=== PATIENT | male | born 1975 ===

== ENCOUNTER 2021-05-03 21:41 | Inpatient (IN) ==
[2021-05-03 23:39] LABS: Eosinophils # 0.8 10*3/uL (0.0-0.87); Eosinophils % 20.3 % (0.00-10.9); Hematocrit 37.7 VOL% (42.0-52.0); Hemoglobin 13.8 GM/DL (14.0-18.0); Immature Granulocytes % 0.3 %; Immature Granulocytes Absolute 0.01 #; Lymphocytes % 23.8 % (21.2-54.2); Mean Corpuscular HGB Conc 36.6 GM/DL (32-36); Mean Corpuscular Volume 92.2 FL (87-102); Mean Platelet Volume 9.6 FL (9.6-12.0); Monocytes % 10.8 % (1.7-12.7); Neutrophils % 43.8 % (38.7-73.9); Platelet Count 129 T/CUMM (130-400); Red Blood Count 4.09 MC/CUMM (3.8-5.5); Red Cell Distribution Width 13.6 % (9.3-17.3)
[2021-05-03 23:58] LABS: Albumin 1.2 G/DL (3.4-5.0); Bilirubin,Total 0.8 MG/DL (0.20-1.00); Calcium 7.8 MG/DL (8.5-10.1); Osmolality,Calculated 283.5 MOS/KG (273-304); Potassium 3.3 MMOL/L (3.5-5.1); Total Protein 4.8 G/DL (6.4-8.2)
[2021-05-04 00:03] LABS: PT Patient Result 11.6 SECS (10.5-12.0); Partial Thromboplastin Time 29.3 SECS (23.8-32.1)
[2021-05-04 00:06] LABS: Barbiturates Screen,Urine Negative (Negative); Benzodiazepines Screen,Urine Negative (Negative); Cannabinoid Screen,Urine Negative (Negative); Opiate Screen,Urine Negative (Negative); Phencyclidine Screen,Urine Negative (Negative)
[2021-05-04 01:06] LABS: Eosinophils 17 % (0-10); Lymphocytes 24 % (20-55); Platelet Estimate Adequate; Segmented Neutrophils 48 % (50-85); Total Cells Counted 100
[2021-05-04] MEDS ORDERED: GLUCAGON 1 MG VIAL IM PRN (03:06)
[2021-05-04] MEDS ORDERED: MAGNESIUM SULF RIDER 2 GM/50 ML PREMIX IV PRN (03:06)
[2021-05-04] MEDS ORDERED: ONDANSETRON 4 MG/2 ML VIAL IV PRN (03:06)
[2021-05-04] MEDS ORDERED: POTASSIUM CHLORIDE 20 MEQ TABLET PO PRN (03:06)
[2021-05-04] MEDS ORDERED: FUROSEMIDE 40 MG/4 ML VIAL IV STA (03:06)
[2021-05-04] MEDS ORDERED: MAGNESIUM SULF RIDER 4 GM/100 ML PREMIX IV PRN (03:06)
[2021-05-04] MEDS ORDERED: hydrALAZINE 20 MG/1 ML VIAL IV PRN (03:06)
[2021-05-04] MEDS ORDERED: ACETAMINOPHEN 325 MG TABLET PO PRN (03:06)
[2021-05-04] MEDS ORDERED: POTASSIUM CHLORIDE RIDER 10 MEQ/100 ML PREMIX IV PRN (03:06)
[2021-05-04] MEDS ORDERED: DEXTROSE 10% 250 ML BAG IV PRN (03:15)
[2021-05-04] MEDS ORDERED: HYDROmorphone 2 MG/1 ML VIAL IV PRN (03:24)
[2021-05-04 04:30] LABS: Eosinophils % 23.5 % (0.00-10.9); Hemoglobin 13.3 GM/DL (14.0-18.0); Immature Granulocytes % 0.2 %; Immature Granulocytes Absolute 0.01 #; Lymphocytes % 23.7 % (21.2-54.2); Mean Corpuscular HGB Conc 35.9 GM/DL (32-36); Mean Corpuscular Volume 93.4 FL (87-102); Mean Platelet Volume 9.4 FL (9.6-12.0); Monocytes % 11.2 % (1.7-12.7); Neutrophils % 40.4 % (38.7-73.9); Platelet Count 119 T/CUMM (130-400); Red Blood Count 3.96 MC/CUMM (3.8-5.5); Red Cell Distribution Width 13.6 % (9.3-17.3); White Blood Count 4.1 T/CUMM (4-12)
[2021-05-04 04:59] LABS: Albumin 1.2 G/DL (3.4-5.0); Bilirubin,Total 0.9 MG/DL (0.20-1.00); Calcium 7.7 MG/DL (8.5-10.1); Osmolality,Calculated 279.5 MOS/KG (273-304); Potassium 3.2 MMOL/L (3.5-5.1); Risk Ratio 2.76; Total Protein 4.8 G/DL (6.4-8.2)
[2021-05-04 05:00] LABS: Atypical Lymphocytes Few; Eosinophils 27 % (0-10); Hypochromia Slight; Lymphocytes 36 % (20-55); Segmented Neutrophils 31 % (50-85); Total Cells Counted 100
[2021-05-04 05:01] LABS: Microcytosis Slight; Platelet Estimate Adequate
[2021-05-04] MEDS: LACTULOSE 20 GM/30 ML UDCUP PO SCH ×3 (06:06→17:34)
[2021-05-04] MEDS ORDERED: ASPIRIN CHEW 81 MG TABLET PO STA (06:26)
[2021-05-04] MEDS: INSULIN REGULAR 100 UNIT/ML SUBCUT SCH ×4 (08:26→22:52)
[2021-05-04] MEDS ORDERED: PANTOPRAZOLE 40 MG TABLET PO SCH (09:00)
[2021-05-04] MEDS ORDERED: ENOXAPARIN 40 MG/0.4 ML SYRINGE ONE ×2 (09:59→10:55)
[2021-05-04] MEDS ORDERED: ENOXAPARIN 80 MG/0.8 ML SYRINGE SUBCUT SCH (10:00)
[2021-05-04] MEDS: PANTOPRAZOLE 40 MG VIAL IV SCH (10:14)
[2021-05-04] MEDS: ENOXAPARIN 40 MG/0.4 ML SYRINGE SUBCUT SCH ×2 (10:14→18:42)
[2021-05-04] MEDS: DOCUSATE SODIUM 100 MG CAPSULE PO SCH ×2 (10:15→21:08)
[2021-05-04] MEDS: FUROSEMIDE 40 MG/4 ML VIAL IV SCH ×2 (10:15→17:35)
[2021-05-04] MEDS: METOPROLOL TARTRATE 25 MG TABLET PO SCH ×2 (10:54→21:08)
[2021-05-04] MEDS ORDERED: MAGNESIUM SULF RIDER 2 GM/50 ML PREMIX IV ONE (11:05)
[2021-05-04] MEDS ORDERED: SPIRONOLACTONE 25 MG TABLET PO SCH (21:00)
[2021-05-04] MEDS: SPIRONOLACTONE 50 MG TABLET PO SCH (21:08)
[2021-05-05 05:24] LABS: Basophils % 0.7 % (0.0-0.8); Eosinophils # 1.3 10*3/uL (0.0-0.87); Eosinophils % 22.2 % (0.00-10.9); Hematocrit 28.4 VOL% (42.0-52.0); Hemoglobin 10.4 GM/DL (14.0-18.0); Immature Granulocytes % 0.3 %; Immature Granulocytes Absolute 0.02 #; Lymphocytes # 1.5 10*3/uL (1.4-4.0); Lymphocytes % 25.9 % (21.2-54.2); Mean Corpuscular HGB Conc 36.6 GM/DL (32-36); Mean Corpuscular Volume 93.7 FL (87-102); Mean Platelet Volume 9.7 FL (9.6-12.0); Neutrophils % 39.9 % (38.7-73.9); Platelet Count 133 T/CUMM (130-400); Red Blood Count 3.03 MC/CUMM (3.8-5.5); Red Cell Distribution Width 13.7 % (9.3-17.3); White Blood Count 5.8 T/CUMM (4-12)
[2021-05-05 05:39] LABS: Calcium 8.1 MG/DL (8.5-10.1); Osmolality,Calculated 279.5 MOS/KG (273-304); Potassium 3.2 MMOL/L (3.5-5.1)
[2021-05-05 05:41] LABS: Bilirubin,Total 0.6 MG/DL (0.20-1.00); Calcium 8.1 MG/DL (8.5-10.1); Osmolality,Calculated 278.5 MOS/KG (273-304); Potassium 3.2 MMOL/L (3.5-5.1); Total Protein 4.9 G/DL (6.4-8.2)
[2021-05-05 05:53] LABS: Eosinophils 25 % (0-10); Lymphocytes 23 % (20-55); Microcytosis Slight; Platelet Estimate Adequate; Segmented Neutrophils 49 % (50-85); Total Cells Counted 100
[2021-05-05] MEDS: LACTULOSE 20 GM/30 ML UDCUP PO SCH ×5 (05:59→23:30)
[2021-05-05] MEDS ORDERED: LACTATED RINGERS 1,000 ML IV SCH (08:00)
[2021-05-05] MEDS: INSULIN REGULAR 100 UNIT/ML SUBCUT SCH ×4 (08:43→21:01)
[2021-05-05] MEDS: PANTOPRAZOLE 40 MG VIAL IV SCH (10:03)
[2021-05-05] MEDS: FUROSEMIDE 40 MG/4 ML VIAL IV SCH ×2 (10:03→16:11)
[2021-05-05] MEDS: DOCUSATE SODIUM 100 MG CAPSULE PO SCH ×2 (10:03→20:57)
[2021-05-05] MEDS: SPIRONOLACTONE 50 MG TABLET PO SCH ×2 (10:03→20:57)
[2021-05-05] MEDS: METOPROLOL TARTRATE 25 MG TABLET PO SCH ×2 (10:03→20:57)
[2021-05-05] MEDS ORDERED: propofoL 200 MG/20 ML VIAL IV ONE (13:58)
[2021-05-05] MEDS ORDERED: LIDOCAINE 2% 5 ML VIAL ONE (13:58)
[2021-05-05 14:07] LABS: % Iron Saturation 31.2 % (18-50)
[2021-05-05 14:14] LABS: Folate 6.13 NG/ML (5.38-24.0)
[2021-05-05] MEDS ORDERED: DEXTROSE 50% 25 GM/50 ML VIAL IV PRN (14:35)
[2021-05-05] MEDS ORDERED: GLUCAGON 1 MG VIAL IM PRN (14:35)
[2021-05-05] MEDS ORDERED: MAGNESIUM SULF RIDER 2 GM/50 ML PREMIX IV ONE (15:00)
[2021-05-05] MEDS ORDERED: POTASSIUM CHLORIDE 20 MEQ TABLET PO ONE (15:00)
[2021-05-05 15:53] LABS: Neutrophils,Peritoneal Fluid 16 %; RBC,Peritoneal Fluid 10 T/CUMM
[2021-05-05] MEDS: ALBUMIN 5% 12.5 GM/250 ML VIAL IV SCH (16:11)
[2021-05-05] MEDS ORDERED: SIMVASTATIN 40 MG TABLET PO SCH (21:00)
[2021-05-06] MEDS: ALBUMIN 5% 12.5 GM/250 ML VIAL IV SCH ×2 (02:56→15:38)
[2021-05-06] MEDS: INSULIN REGULAR 100 UNIT/ML SUBCUT SCH ×4 (08:09→20:56)
[2021-05-06] MEDS: LACTULOSE 20 GM/30 ML UDCUP PO SCH ×4 (08:09→19:04)
[2021-05-06] MEDS: FOLIC ACID 1 MG TABLET PO SCH (08:42)
[2021-05-06] MEDS: METOPROLOL TARTRATE 25 MG TABLET PO SCH ×2 (08:42→20:56)
[2021-05-06] MEDS: SPIRONOLACTONE 50 MG TABLET PO SCH ×2 (08:42→20:56)
[2021-05-06] MEDS: MULTIVITAMIN (CENTRUM) TABLET PO SCH (08:42)
[2021-05-06] MEDS: THIAMINE 100 MG TABLET PO SCH (08:42)
[2021-05-06] MEDS: DOCUSATE SODIUM 100 MG CAPSULE PO SCH ×2 (08:42→20:56)
[2021-05-06] MEDS: PANTOPRAZOLE 40 MG VIAL IV SCH (08:53)
[2021-05-06] MEDS: FUROSEMIDE 40 MG/4 ML VIAL IV SCH ×2 (12:35→19:04)
[2021-05-06] MEDS: ENOXAPARIN 40 MG/0.4 ML SYRINGE SUBCUT SCH (12:36)
[2021-05-06] MEDS: ASPIRIN 325 MG TABLET PO SCH (12:36)
[2021-05-07] MEDS: LACTULOSE 20 GM/30 ML UDCUP PO SCH ×4 (00:44→18:02)
[2021-05-07] MEDS: ALBUMIN 5% 12.5 GM/250 ML VIAL IV SCH ×2 (03:33→15:24)
[2021-05-07 07:15] LABS: Basophils % 0.6 % (0.0-0.8); Eosinophils # 0.9 10*3/uL (0.0-0.87); Eosinophils % 16.7 % (0.00-10.9); Hemoglobin 10.4 GM/DL (14.0-18.0); Immature Granulocytes % 0.2 %; Immature Granulocytes Absolute 0.01 #; Lymphocytes # 1.4 10*3/uL (1.4-4.0); Lymphocytes % 26.6 % (21.2-54.2); Mean Corpuscular HGB Conc 37.1 GM/DL (32-36); Mean Corpuscular Volume 94.6 FL (87-102); Mean Platelet Volume 10.3 FL (9.6-12.0); Monocytes % 8.1 % (1.7-12.7); Neutrophils % 47.8 % (38.7-73.9); Platelet Count 128 T/CUMM (130-400); Red Blood Count 2.96 MC/CUMM (3.8-5.5); Red Cell Distribution Width 13.3 % (9.3-17.3); White Blood Count 5.1 T/CUMM (4-12)
[2021-05-07 07:35] LABS: Albumin 1.5 G/DL (3.4-5.0); Bilirubin,Total 0.7 MG/DL (0.20-1.00); Calcium 7.8 MG/DL (8.5-10.1); Osmolality,Calculated 282.3 MOS/KG (273-304); Potassium 3.1 MMOL/L (3.5-5.1); Total Protein 4.8 G/DL (6.4-8.2)
[2021-05-07 08:29] LABS: Anisocytosis Slight; Eosinophils 19 % (0-10); Lymphocytes 22 % (20-55); Platelet Estimate Normal; Segmented Neutrophils 49 % (50-85); Target Cells Slight; Total Cells Counted 100
[2021-05-07] MEDS: THIAMINE 100 MG TABLET PO SCH (09:59)
[2021-05-07] MEDS: ASPIRIN 325 MG TABLET PO SCH (09:59)
[2021-05-07] MEDS: METOPROLOL TARTRATE 25 MG TABLET PO SCH (09:59)
[2021-05-07] MEDS: DOCUSATE SODIUM 100 MG CAPSULE PO SCH (09:59)
[2021-05-07] MEDS: FOLIC ACID 1 MG TABLET PO SCH (09:59)
[2021-05-07] MEDS: SPIRONOLACTONE 50 MG TABLET PO SCH (09:59)
[2021-05-07] MEDS: MULTIVITAMIN (CENTRUM) TABLET PO SCH (09:59)
[2021-05-07] MEDS: PANTOPRAZOLE 40 MG VIAL IV SCH (10:00)
[2021-05-07] MEDS: FUROSEMIDE 40 MG/4 ML VIAL IV SCH ×2 (10:00→15:27)
[2021-05-07] MEDS: ENOXAPARIN 40 MG/0.4 ML SYRINGE SUBCUT SCH (10:00)
[2021-05-07] MEDS: INSULIN REGULAR 100 UNIT/ML SUBCUT SCH ×3 (10:01→18:02)
[2021-05-07] MEDS ORDERED: POTASSIUM CHLORIDE 20 MEQ TABLET PO ONE (10:49)
[2021-05-07] MEDS ORDERED: FERROUS SULFATE 325 MG TABLET PO SCH (11:00)
[2021-05-07 16:25] VITALS: BP 128/84
== END 2021-05-07 18:40 | disposition home or self-care (01) | DRG 280 ==
LOC: EDBD → EDUNIT# → N.ED 21:41 → N.EDINP 05-04 03:06 → N.5E 05-04 15:20
PROVIDERS: ADMIT Internal Medicine; ATTEND Internal Medicine

== ENCOUNTER 2021-06-27 13:28 | Observation (INO) ==
[2021-06-27 22:03] LABS: Basophils # 0.1 10*3/uL (0.0-0.2); Basophils % 0.8 % (0.0-0.8); Eosinophils # 0.8 10*3/uL (0.0-0.87); Eosinophils % 12.6 % (0.00-10.9); Hematocrit 36.8 VOL% (42.0-52.0); Hemoglobin 13.2 GM/DL (14.0-18.0); Immature Granulocytes % 0.2 %; Immature Granulocytes Absolute 0.01 #; Lymphocytes # 1.6 10*3/uL (1.4-4.0); Lymphocytes % 25.5 % (21.2-54.2); Mean Corpuscular HGB Conc 35.9 GM/DL (32-36); Mean Corpuscular Volume 94.4 FL (87-102); Mean Platelet Volume 9.3 FL (9.6-12.0); Monocytes # 0.4 10*3/uL (0.11-0.8); Monocytes % 6.4 % (1.7-12.7); Neutrophils % 54.5 % (38.7-73.9); Platelet Count 190 T/CUMM (130-400); Red Cell Distribution Width 13.9 % (9.3-17.3); White Blood Count 6.1 T/CUMM (4-12)
[2021-06-27 22:45] LABS: Albumin 1.6 G/DL (3.4-5.0); Bilirubin,Total 0.7 MG/DL (0.20-1.00); Osmolality,Calculated 286.1 MOS/KG (273-304); Potassium 3.7 MMOL/L (3.5-5.1); Total Protein 6.4 G/DL (6.4-8.2)
[2021-06-27] MEDS ORDERED: ONDANSETRON 4 MG/2 ML VIAL IV PRN (23:08)
[2021-06-27] MEDS ORDERED: GLUCAGON 1 MG VIAL IM PRN (23:13)
[2021-06-27] MEDS ORDERED: DEXTROSE 10% 250 ML BAG IV PRN (23:13)
[2021-06-28 06:57] LABS: Basophils % 0.7 % (0.0-0.8); Eosinophils # 0.7 10*3/uL (0.0-0.87); Eosinophils % 12.6 % (0.00-10.9); Hematocrit 33.9 VOL% (42.0-52.0); Hemoglobin 11.9 GM/DL (14.0-18.0); Immature Granulocytes % 0.3 %; Immature Granulocytes Absolute 0.02 #; Lymphocytes # 1.1 10*3/uL (1.4-4.0); Lymphocytes % 19.1 % (21.2-54.2); Mean Corpuscular HGB Conc 35.1 GM/DL (32-36); Mean Corpuscular Volume 95.8 FL (87-102); Mean Platelet Volume 9.5 FL (9.6-12.0); Monocytes # 0.4 10*3/uL (0.11-0.8); Neutrophils % 61.3 % (38.7-73.9); Platelet Count 194 T/CUMM (130-400); Red Blood Count 3.54 MC/CUMM (3.8-5.5); Red Cell Distribution Width 13.7 % (9.3-17.3); White Blood Count 5.9 T/CUMM (4-12)
[2021-06-28 07:17] LABS: Albumin 1.4 G/DL (3.4-5.0); Osmolality,Calculated 284.1 MOS/KG (273-304); Potassium 3.9 MMOL/L (3.5-5.1); Total Protein 5.8 G/DL (6.4-8.2)
[2021-06-28 07:27] LABS: Eosinophils 14 % (0-10); Lymphocytes 23 % (20-55); Total Cells Counted 100
[2021-06-28 07:28] LABS: Hypochromia Slight; Microcytosis Slight; Platelet Estimate Adequate
[2021-06-28] MEDS ORDERED: INSULIN REGULAR 100 UNIT/ML SUBCUT SCH (07:30)
[2021-06-28] MEDS ORDERED: PANTOPRAZOLE 40 MG TABLET PO SCH (09:00)
[2021-06-28 09:37] LABS: PT Patient Result 11.1 SECS (10.5-12.0)
[2021-06-28 11:49] VITALS: BP 144/89
[2021-06-28] MEDS ORDERED: METOPROLOL TARTRATE 25 MG TABLET PO SCH (21:00)
[2021-06-29] MEDS ORDERED: PANTOPRAZOLE 40 MG TABLET PO SCH (09:00)
[2021-06-29] MEDS ORDERED: THIAMINE 100 MG TABLET PO SCH (09:00)
[2021-06-29] MEDS ORDERED: MULTIVITAMIN (CENTRUM) TABLET PO SCH (09:00)
[2021-06-29] MEDS ORDERED: POTASSIUM CHLORIDE 10 MEQ TABLET PO SCH (09:00)
== END 2021-06-28 13:57 | disposition home or self-care (01) ==
LOC: N.ED 13:28 → N.EDINP 13:28
PROVIDERS: ADMIT Internal Medicine; ATTEND Internal Medicine